=== PATIENT | female | born 2000 | race American Indian/Alaskan Native ===

== ENCOUNTER 2021-01-27 19:02 | Inpatient (IN) | payer MEDICAID ==
[2021-01-27] MEDS ORDERED: TERBUTALINE 1 MG/1 ML INJ SUB-Q PRN (19:39)
[2021-01-27] MEDS ORDERED: ePHEDrine SULFATE 50 MG/1 ML INJ IV PRN (19:39)
[2021-01-27] MEDS ORDERED: AMPICILLIN/NS 2 GM/100 ML 2 GM/100 ML BAG IV ONE ×2 (19:39→22:30)
[2021-01-27] MEDS ORDERED: MINERAL OIL 30 ML ORAL LIQD PO PRN (19:39)
[2021-01-27] MEDS ORDERED: LIDOCAINE (2%) 20 MG/1 ML VIAL 20 ML MDV INFILTRATI ONE (19:39)
[2021-01-27] MEDS ORDERED: ONDANSETRON 4 MG/2 ML INJ IV PRN (19:39)
[2021-01-27] MEDS ORDERED: LACTATED RINGERS 1,000 ML IV SCH (19:45)
[2021-01-27] MEDS ORDERED: OXYTOCIN DRIP 30 UNITS/500 ML BAG IV SCH (20:00)
[2021-01-27 20:47] LABS: Hematocrit 33.6 % (30.3-42.9); Hemoglobin 11.3 gm/dl (10.1-14.3); Mean Corpuscular HGB Conc 34 % (30-34); Mean Corpuscular Volume 83 fl (79-97); Platelet Count 129 K/mm3 (140-440); Red Blood Count 4.07 M/mm3 (3.65-5.03)
[2021-01-27] MEDS: fentaNYL 100 MCG/2 ML INJ IV PRN (21:36)
[2021-01-28] MEDS: fentaNYL 100 MCG/2 ML INJ IV PRN (01:03)
[2021-01-28] MEDS: AMPICILLIN/NS 1 GM/50 ML 1 GM/50 ML BAG IV SCH ×2 (01:30→05:37)
[2021-01-28] MEDS ORDERED: NALOXONE 2 MG/2 ML INJ IV PRN (01:54)
[2021-01-28] MEDS ORDERED: ePHEDrine SULFATE 50 MG/1 ML INJ IV PRN (01:54)
[2021-01-28] MEDS ORDERED: fentaNYL-BUPIV 2 MCG/ML-0.125% 200 MCG/100 ML BAG EPIDURAL SCH (02:00)
--- NOTE | 2021-01-28 02:13 | Anesthesia Consultation ---
Anesthesia Consult and Med Hx Date of service: 01/28/21 - Airway Anesthetic Teeth Evaluation: Good ROM Head & Neck: Adequate Mental/Hyoid Distance: Adequate Mallampati Class: Class II Intubation Access Assessment: Probably Good - Pulmonary Exam CTA: Yes - Cardiac Exam Cardiac Exam: RRR - Pre-Operative Health Status ASA Pre-Surgery Classification: ASA2 Proposed Anesthetic Plan: Epidural - Pulmonary Hx Asthma: No COPD: No Hx Pneumonia: No - Endocrine Hx End Stage Renal Disease: No - Other Systems Hx Alcohol Use: No
--- NOTE | 2021-01-28 02:15 | Progress Note ---
Labor Epidural - Labor Epidural Start Time: 02:00 Stop Time: 02:06 Performed by:: BECKY LESTER Procedure: Patient is requesting epidural for labor pain. H&P, and labs reviewed. Procedure explained, questions answered, consent obtained. Patient in sitting position with blood pressure cuff and pulse ox on and working. Timeout performed immediately before start of procedure. Sterile chlorahexadine 0.5% prep/drape. 3 mL 1% lidocaine skin wheal at L[3]-L[4]. 18-gauge [employer] epidural needle advanced to [id number] with saline at [7] cm. 27-gauge spinal needle advanced until clear, free-flowing CSF. Intrathecal dexmedetomidine [5] mcg administered and needle removed. Epidural catheter advanced to [12] cm, negative aspiration for blood and csf, negative test dose 3 ml 1.5% lidocaine with epinephrine. Sterile steri-strips and tegaderm applied, followed by tape reinforcement. Patient tolerated procedure well.
[2021-01-28] MEDS ORDERED: LIDOCAINE (2%) 20 MG/1 ML VIAL 20 ML MDV INFILTRATI ONE (05:34)
--- NOTE | 2021-01-28 06:21 | History and Physical Report ---
History of Present Illness Date of examination: 01/28/21 Date of admission: 01/27/21 19:24 Chief complaint: My water broke History of present illness: Patient is a 20-year-old 1 para 0 who presents with spontaneous rupture of membranes at 37-3/7 weeks. Her EDC is February 15, 2021. She is receiving care at [facility] however records are not available for review. Per the patient she has had an uncomplicated course. Past History Past Medical History: no pertinent history Past Surgical History: no surgical history Family/Genetic History: none Social history: single - Obstetrical History Expected Date of Delivery: 02/15/21 Actual Gestation: 37 Week(s) 3 Day(s) : 1 Medications and Allergies Allergies Allergy/AdvReac Type Severity Reaction Status Date / Time No Known Allergies Allergy Unverified 01/27/21 19:24 Active Meds: Active Medications Ephedrine Sulfate (Ephedrine Sulfate 50 Mg/1 Ml Inj) 10 mg IV Q2M PRN PRN Reason: Hypotension Fentanyl (Fentanyl 100 Mcg/2 Ml Inj) 100 mcg IV Q2H PRN PRN Reason: Pain,Severe (7-10) LABOR PAIN Last Admin: 01/28/21 01:03 Dose: 100 mcg Documented by: Lactated Ringer's (Lactated Ringers) 1,000 mls @ 125 mls/hr IV DIRECT LEN Last Admin: 01/27/21 21:33 Dose: 125 mls/hr Documented by: Oxytocin/Sodium Chloride (Pitocin/Ns 30 Unit/500ml) 30 units in 500 mls @ 40 mls/hr IV TITR LEN; Protocol Last Titration: 01/28/21 05:30 Dose: 8 mls/hr, 8 mls/hr Documented by: Ampicillin Sodium (Ampicillin/Ns 1 Gm/50 Ml) 1 gm in 50 mls @ 100 mls/hr IV Q4H LEN; Protocol Last Admin: 01/28/21 05:37 Dose: 100 mls/hr Documented by: Fentanyl/Bupivacaine/Sodium Chlor (Fentanyl-Bupiv 2 Mcg/Ml-0.125%) 200 mcg in 100 mls @ 12 mls/hr EPIDURAL TITR LEN; Protocol Last Admin: 01/28/21 02:21 Dose: 12 mls/hr Documented by: Mineral Oil (Mineral Oil 30 Ml Oral Liqd) 30 ml PO QHS PRN PRN Reason: Constipation Naloxone HCl (Naloxone 2 Mg/2 Ml Inj) 0.2 mg IV Q5M PRN PRN Reason: Respiratory sedation Ondansetron HCl (Ondansetron 4 Mg/2 Ml Inj) 4 mg IV Q8H PRN PRN Reason: Nausea And Vomiting Terbutaline Sulfate (Terbutaline 1 Mg/1 Ml Inj) 0.25 mg SUB-Q ONCE PRN PRN Reason: Hyperstimulation/Hypertonicity Review of Systems All systems: negative Genitourinary: leakage of fluid, contractions - Vital Signs Vital signs: Vital Signs Pulse Pulse Ox 102 H 100 01/27/21 19:05 01/27/21 19:05 Temp Pulse Resp BP Pulse Ox 98.4 F 98 H 18 94/63 98 01/28/21 05:30 01/28/21 06:15 01/28/21 05:30 01/28/21 06:11 01/28/21 06:15 - Physical Exam Breasts: Cardiovascular: Regular rate, Normal S1, Normal S2 Lungs: Positive: Clear to auscultation, Normal air movement Abdomen: Positive: normal appearance, soft, normal bowel sounds. Negative: distention, tenderness Genitourinary (Female): Positive: normal external genitalia, normal perenium Vulva: both: normal Vagina: Positive: normal moisture. Negative: discharge Cervix: Negative: lesion, discharge Uterus: Positive: normal size, normal contour Adnexa: both: normal Anus/Rectum: Positive: normal perianal skin, heme negative. Negative: rectal mass, hemorrhoids Extremities: Deep Tendon Reflex Grade: Normal +2 - Obstetrical Cervical Dilatation: 2 Cervical Effacement Percentage: 80 station: -2 Uterine Contraction Pattern: Regular Uterine Tone Measurement Phase: Contraction Uterine Contraction Intensity: Moderate Results Result Diagrams: 01/27/21 19:55 Abnormal lab results 01/27/21 Range/Units 19:55 Plt Count 129 L (140-440) K/mm3 All other labs normal. Assessment and Plan IUP at 37-3/7 weeks with spontaneous rupture membranes at term. She is also having some contractions. records were available for review, Therefore we will initiate GBS protocol. Patient to be augmented with Pitocin. Anticipate .
--- NOTE | 2021-01-28 10:34 | Procedure Note ---
OB Delivery Note - Delivery Date of Delivery: 01/28/21 Surgeon: CHRISTIN BOB Estimated blood loss: other (600 cc) - Section Preop diagnosis: arrest of descent Postop diagnosis: same section procedure: primary low transverse Disposition: PACU Complications: none Narrative: See op report - Infant A Infant Gender: Male (6 pounds 8 ounces 2950 g)
[2021-01-28] MEDS ORDERED: PHENYLEPHRINE/NS 1,000 MCG/10 ML SYRINGE (OR USE) IV ONE (13:30)
[2021-01-28] MEDS ORDERED: ONDANSETRON 4 MG/2 ML INJ ONE (13:30)
[2021-01-28] MEDS ORDERED: FAMOTIDINE 20 MG/2 ML INJ IV ONE (13:33)
[2021-01-28] MEDS ORDERED: BICITRA ORAL LIQD 30ML ONE (13:33)
[2021-01-28] MEDS ORDERED: METOCLOPRAMIDE 10 MG/2 ML INJ ONE (13:33)
[2021-01-28] MEDS ORDERED: KETOROLAC 30 MG/1 ML INJ ONE (13:34)
[2021-01-28] MEDS ORDERED: LIDOCAINE 2%/EPINEPHRINE 1:200,000 VIAL (20 ML) INFILTRATI ONE (13:34)
[2021-01-28] MEDS ORDERED: FAMOTIDINE 20 MG/2 ML INJ IV NR (13:35)
[2021-01-28] MEDS ORDERED: BICITRA ORAL LIQD 30ML PO NR (13:35)
[2021-01-28] MEDS ORDERED: METOCLOPRAMIDE 10 MG/2 ML INJ IV ONE (13:35)
[2021-01-28] MEDS ORDERED: dexAMETHasone 20 MG/5 ML VIAL ONE (13:36)
[2021-01-28] MEDS ORDERED: BUPIVACAINE/PF (0.5%) 5 MG/1 ML 30 ML VIAL INFILTRATI ONE (13:36)
--- NOTE | 2021-01-28 13:42 | Event Note ---
Date: 01/28/21 Pt progressd to 10cm and began pushing at 11am from -1 station. After 2 hours, vacuum was applied with no result to deliver the vertex. Will now proceed with urgent primary secondary to cephalopelvic disproportion, Pt agrees and signed consent.
[2021-01-28] MEDS ORDERED: LACTATED RINGERS 1,000 ML IV SCH (13:45)
[2021-01-28] MEDS ORDERED: ceFAZolin/Water 2 GM/20 ML 2 GM/20 ML SYRINGE IV NR (14:00)
[2021-01-28] MEDS ORDERED: ceFAZolin/STERILE WATER 2 GM/20 ML SYRINGE IV ONE (14:14)
[2021-01-28] MEDS ORDERED: WATER FOR IRRIG STERILE 1,500 ML BOTTLE IR ONE (14:15)
[2021-01-28] MEDS ORDERED: SODIUM CHLORIDE 0.9% IRR 1,500 ML BOTTLE IR ONE (14:15)
--- NOTE | 2021-01-28 15:33 | Operative Report ---
Operative Report Operative Report: Preoperative diagnosis: Intrauterine at 37-3/7 weeks 2. Arrest of descent 3. Persistent occiput posterior position 4. Failed vacuum extraction Postoperative diagnosis: Same Procedure: Primary low transverse section Surgeon: Dr. Tena Carmona EBL: 600 cc Urine output: 200 mL IV fluids: 1600 mL LR Findings: Viable male in the persistent occiput posterior position. Weight 6 lbs. 8 oz. 2950 g Apgars 8 and 9. Otherwise normal pelvic anatomy Specimens: None Complications: None Procedure: The patient was admitted to the OR with IV running and in place. She was properly identified as herself. She had an epidural placed in the room prior to entering into the OR. A Priest catheter had also been placed. She was placed in the dorsal supine position with a leftward tilt. She was then prepped and draped in the normal sterile fashion. An Allis test was used to confirm adequate anesthesia. Once confirmed, the incision was made with the scalpel and carried to the underlying fascia using the scalpel and the Bovie. The fascia was incised in the midline and incision was extended bilaterally using the curved Lund scissors. The fascia was then dissected from the underlying rectus muscles in a series of sharp and blunt dissection using the Lund scissors. Muscles were in the in the midline sharply using Metzenbaum scissors and the peritoneum was entered into bluntly using the surgeon's fingers. A bladder blade was then placed into the incision to protect the bladder. Following this the bladder flap was created. Hysterotomy incision was then made in the scalpel. Upon uterine entry, the amniotic sac was ruptured for clear fluid. The right arm of the was the presenting part. The was then delivered without difficulty. His mouth and nose were suctioned on the field. The cord was clamped and cut and he was handed to the waiting NICU personnel. The uterus was then exteriorized and cleared of all clots and debris. The hysterotomy incision was then closed in a running locked fashion using 0 Vicryl. The abdomen was then copiously irrigated with warm normal saline. Following this the uterus was replaced into the abdominal cavity. At this point the muscles were reapproximated in the midline using individual sutures of 0 Vicryl. Following this the fascia was closed in a running fashion using 0 Vicryl. Tissue was then copiously irrigated. Skin was closed in a running fashion using 3-0 Monocryl. The sponge lap needle and instrument counts were correct 2. The patient tolerated the procedure well. She was taken to recovery in stable condition.
--- NOTE | 2021-01-28 15:50 | Progress Note ---
Regional Anesthesia Block - Regional Anesthesia Block Start Time: 15:30 Stop Time: 15:35 Performed By:: BECKY LESTER Procedure: U/S guided bilateral tap block performed for post-operative pain requested by Dr. Carmona. H&P & labs reviewed. Procedure explained, questions answered, consent obtained. Patient in the supine position with ekg, blood pressure cuff and pulse ox on and working in PACU. Timeout performed immediately before start of procedure. Probe placed in the mid-axillary line and the external oblique, internal oblique, and transverse abdominus muscles identified. Skin was cleansed with chlorahexadine 0.5% and allowed to dry. A 4" 20 G Mandujano echogenic needle was advanced in plane until the tip was in the fascial plane between the internal oblique and the transverse abdominus. After negative aspiration 35 ml/side of [30 ml 0.5% Bupivacaine], [10 mg dexamethasone], and [40 ml sterile saline] was injected in 5 ml increments with negative aspiration in between. Patient tolerated procedure well. Mathew NUNN
[2021-01-28] MEDS ORDERED: OXYTOCIN DRIP 30 UNITS/500 ML BAG IV SCH (17:16)
[2021-01-28] MEDS ORDERED: LANOLIN/ZINC/DIMETHICONE (LANSINOH) 7 GM TP PRN (17:16)
[2021-01-28] MEDS ORDERED: WITCH HAZEL/ GLYCERIN PAD TP PRN (17:16)
[2021-01-28] MEDS ORDERED: NALOXONE 0.4 MG/1 ML INJ IV PRN (17:16)
[2021-01-28] MEDS ORDERED: D5W/LACTATED RINGERS 1,000 ML IV SCH (18:16)
[2021-01-28 18:20] LABS: Hematocrit 27.5 % (30.3-42.9); Hemoglobin 9.1 gm/dl (10.1-14.3); Mean Corpuscular HGB Conc 33 % (30-34); Mean Corpuscular Volume 82 fl (79-97); Platelet Count 116 K/mm3 (140-440); Red Blood Count 3.37 M/mm3 (3.65-5.03); Red Cell Distribution Width 13.8 % (13.2-15.2)
[2021-01-28] MEDS: MORPHINE 4 MG/1 ML INJ IV PRN (21:16)
[2021-01-28 21:44] LABS: Total Cells Counted 100
[2021-01-28 21:45] LABS: Anisocytosis 1+; Platelet Estimate Consistent w Auto
[2021-01-29] MEDS: oxyCODONE /ACETAMINOPHEN 5-325MG TAB PO PRN ×2 (02:30→09:49)
[2021-01-29] MEDS: IBUPROFEN 800 MG TAB PO PRN ×2 (06:51→15:43)
[2021-01-29] MEDS: PRENATAL VIT27-FE FUMARATE-FOLIC ACID VIT TAB PO SCH (09:46)
[2021-01-29] MEDS: FERROUS SULFATE 325 MG TAB PO SCH (09:46)
[2021-01-29 11:01] LABS: Hematocrit 22.6 % (30.3-42.9); Hemoglobin 7.5 gm/dl (10.1-14.3)
[2021-01-29 12:24] LABS: Bilirubin,Urine NEG (Negative); Blood,Urine LG (Negative); Color,Urine Red (Yellow); Mucus,Urine FEW /HPF; Urobilinogen,Urine < 2.0 mg/dL (<2.0)
[2021-01-29 12:25] LABS: Amphetamine Screen,Urine Negative; Benzodiazepines Screen,Urine Negative; Cannabinoid Screen,Urine Negative; Cocaine Screen,Urine Negative; Methadone Screen,Urine Negative; Opiate Screen,Urine Negative; RBC,Urine > 182.0 /HPF (0.0-6.0)
--- NOTE | 2021-01-29 12:29 | Post Anesthesia Evaluation ---
- Post Anesthesia Evaluation Patient Participated: Yes Airway Patent: Yes Stable Respiratory Function: Yes Nausea/Vomiting: No Temp > 96.8F: Yes Pain Manageable: Yes Adequeate Hydration: Yes Anesthesia Complications: No Block Receding Appropriately: Yes
--- NOTE | 2021-01-29 14:46 | Progress Note ---
Assessment and Plan POD 1 s/p Primary ltcs. Doing well. Pt has not had flatus as yet but has no nausea or vomiting noted. Encourage ambulation. Continue routine care. Subjective - Subjective Date of service: 01/29/21 Principal diagnosis: s/p Interval history: Patient is a 20-year-old 1 para 0 who presents with spontaneous rupture of membranes at 37-3/7 weeks. Her EDC is February 15, 2021. She is receiving care at [place] [facility] however records are not available for review. Per the patient she has had an uncomplicated course. Patient reports: appetite normal, voiding normally, pain well controlled, ambulating normally [place]: doing well Objective - Vital Signs Latest vital signs: Vital Signs Temp Pulse Resp BP BP Pulse Ox 01/29/21 10:49 16 01/29/21 09:49 16 01/29/21 08:52 98.0 F 82 18 113/59 96 01/29/21 07:35 16 01/29/21 07:25 16 01/29/21 05:10 98.1 F 90 18 112/71 97 01/29/21 01:17 98.3 F 93 H 20 112/64 95 01/28/21 20:56 97.7 F 103 H 18 117/78 96 01/28/21 17:35 98.8 F 85 17 120/80 99 01/28/21 16:45 99.1 F 82 18 108/70 98 01/28/21 16:30 80 17 111/68 98 01/28/21 16:15 84 15 109/67 98 01/28/21 16:00 69 17 105/71 98 01/28/21 15:45 73 15 113/66 98 01/28/21 15:35 77 14 114/58 98 01/28/21 15:30 76 16 116/56 98 01/28/21 15:25 98.9 F 82 18 111/66 98 Intake and Output 01/28/21 01/29/21 01/29/21 22:59 06:59 14:59 Intake Total 440 240 Output Total 1600 900 Balance -1160 -660 Intake: IV 200 Oral 240 240 Output: Urine 1600 900 Indwelling Catheter 600 900 Uretheral (Priest) 400 Other: Total, Intake Amount 240 240 Total, Output Amount 600 500 # Voids Indwelling Catheter 1 - Exam Breasts: Present: deferred Cardiovascular: Present: Regular rate, Normal S1, Normal S2 Lungs: Present: Clear to auscultation, Normal air movement Abdomen: Present: normal appearance, soft Uterus: Present: normal, firm Extremities: Present: normal Incision: Present: normal, dry, intact - Labs Labs: Abnormal lab results 01/28/21 01/29/21 01/29/21 Range/Units 18:01 09:46 11:55 WBC 14.5 H (4.5-11.0) K/mm3 RBC 3.37 L (3.65-5.03) M/mm3 Hgb 9.1 L 7.5 L (10.1-14.3) gm/dl Hct 27.5 L D 22.6 L (30.3-42.9) % MCH 27 L (28-32) pg Plt Count 116 L (140-440) K/mm3 Seg Neuts % (Manual) 95.0 H (40.0-70.0) % Lymphocytes % (Manual) 3.0 L (13.4-35.0) % Seg Neutrophils # Man 13.8 H (1.8-7.7) K/mm3 Lymphocytes # (Manual) 0.4 L (1.2-5.4) K/mm3 Urine WBC (Auto) 149.0 H (0.0-6.0) /HPF
[2021-01-29] MEDS: MORPHINE 4 MG/1 ML INJ IV PRN (21:43)
[2021-01-30] MEDS: oxyCODONE /ACETAMINOPHEN 5-325MG TAB PO PRN (02:56)
[2021-01-30] MEDS: SIMETHICONE 80 MG CHEW TAB PO PRN ×2 (02:57→08:14)
[2021-01-30] MEDS ORDERED: oxyCODONE /ACETAMINOPHEN 5-325MG TAB PO PRN (08:00)
--- NOTE | 2021-01-30 08:04 | Progress Note ---
Assessment and Plan A: POD#2 s/p primary at term Delayed return of bowel function Acute blood loss anemia P: Begin bowel regimen with Lactulose Encourage ambulation Continue to monitor clinical status Subjective - Subjective Date of service: 01/30/21 Principal diagnosis: s/p Interval history: Pt denies flatus and reports gas pain is causing her the most discomfort. She denies nausea or vomiting, and is burping. She is tolerating clear liquids. 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 Ambulated twice yesterday. Patient reports: appetite normal, voiding normally, pain poorly controlled, ambulating normally (minimally ), no dizzy ambulation, no flatus, no bowel movement [place]: doing well Objective - Vital Signs Latest vital signs: Vital Signs Temp Pulse Resp BP Pulse Ox 01/30/21 00:16 97.8 F 82 18 95/58 98 01/29/21 17:38 98.1 F 88 22 102/58 98 01/29/21 15:43 16 01/29/21 10:49 16 01/29/21 09:49 16 01/29/21 08:52 98.0 F 82 18 113/59 96 Intake and Output 01/29/21 01/30/21 01/30/21 22:59 06:59 14:59 Intake Total 1080 480 Balance 1080 480 Intake: Oral 360 Intake, Free Water 720 480 Other: Total, Intake Amount 360 # Voids Indwelling Catheter 3 Void 1 - Exam Breasts: Present: deferred Abdomen: Present: soft, distention (moderate ) Uterus: Present: fundal height at umbilicus Extremities: Present: normal Incision: Present: intact (with steristrips ) - Labs Labs: Abnormal lab results 01/29/21 01/29/21 Range/Units 09:46 11:55 Hgb 7.5 L (10.1-14.3) gm/dl Hct 22.6 L (30.3-42.9) % Urine WBC (Auto) 149.0 H (0.0-6.0) /HPF
[2021-01-30] MEDS: IBUPROFEN 800 MG TAB PO SCH ×3 (08:14→22:19)
[2021-01-30] MEDS: LACTULOSE 20 GM/30 ML ORAL LIQD PO SCH ×3 (09:01→21:59)
[2021-01-30] MEDS: FERROUS SULFATE 325 MG TAB PO SCH (09:35)
[2021-01-30] MEDS: PRENATAL VIT27-FE FUMARATE-FOLIC ACID VIT TAB PO SCH (09:35)
[2021-01-31] MEDS: LACTULOSE 20 GM/30 ML ORAL LIQD PO SCH (00:40)
[2021-01-31] MEDS: IBUPROFEN 800 MG TAB PO SCH ×3 (03:00→15:29)
--- NOTE | 2021-01-31 08:00 | Progress Note ---
Assessment and Plan A: POD3 s/p Primary C/S at term Acute Anemia due to blood loss P: Continue with routine care with discharge anticipated early this evening. Subjective - Subjective Date of service: 01/31/21 Principal diagnosis: s/p Interval history: POD3 s/p Primary C/S at term. Patient is feeling well and is up and ambulating. Reports passing flatus and having a large bowel movement yesterday. Lochia decreasing and pain is well controlled. Patient reports: appetite normal, voiding normally, pain well controlled, flatus, bowel movement, ambulating normally : doing well Objective - Vital Signs Latest vital signs: Vital Signs Temp Pulse Resp BP Pulse Ox 01/31/21 00:30 98.6 F 68 18 118/78 01/30/21 16:20 98 F 91 H 20 114/75 96 01/30/21 08:00 98.2 F 88 20 122/81 99 Intake and Output 01/30/21 01/30/21 01/31/21 15:59 23:59 07:59 Intake Total 400 500 Output Total 500 Balance 400 0 Intake: Oral 400 200 Intake, Free Water 300 Output: Urine 500 Void 500 Other: Total, Intake Amount 200 200 Total, Output Amount 500 # Voids Void 1 1 # Bowel Movements 1 - Exam Uterus: Present: normal, fundal height below umbilicus
--- NOTE | 2021-01-31 08:06 | Discharge Summary ---
Providers - Providers Date of Admission: 01/27/21 19:24 Date of discharge: 01/31/21 Attending physician: DUSTIN HUNTER Primary care physician: DUSTIN HUNTER Hospitalization Reason for admission: active labor, section (Arrest of Dilation) Delivery: Procedure: primary low transverse Other procedures: none complications: none Discharge diagnosis: IUP at term delivered [place] baby: male Hospital course: Patient presented to the hospital in active labor and went on to have a primary c/s due to arrest of dilation. course was mostly uncomplicated, patient had delayed return of bowel function which resolved on POD #2. Condition at discharge: Good Disposition: DC-01 TO HOME OR SELFCARE Plan - Discharge Medications Prescriptions: Ferrous Sulfate [Feosol 325 MG tab] 325 mg PO BID #60 tablet Ibuprofen [Motrin] 800 mg PO Q8HR PRN #30 tablet PRN Reason: Pain, Moderate (4-6) oxyCODONE /ACETAMINOPHEN [Percocet 5/325] 1 tab PO Q6HR PRN #40 tablet PRN Reason: Pain - Provider Discharge Summary Activity: routine, other (No sex, heavy lifting or strenuous excercise for 8 weeks) Diet: routine Instructions: routine Additional instructions: [] Smoking cessation referral if applicable(refer to patient education folder for contact #) [] Refer to [facility] Booklet Call your doctor immediately for: * Fever > 100.5 * Heavy vaginal bleeding ( >1 pad per hour) * Severe persistent headache * Shortness of breath * Reddened, hot, painful area to leg or breast * Drainage or odor from incision. * Keep incision clean and dry at all times and follow doctor's instructions regarding bathing/showering - Follow up plan Follow up: DUSTIN HUNTER MD [Primary Care Provider] - 14 Days
[2021-01-31] MEDS: FERROUS SULFATE 325 MG TAB PO SCH (09:32)
[2021-01-31] MEDS: PRENATAL VIT27-FE FUMARATE-FOLIC ACID VIT TAB PO SCH (09:32)
[2021-01-31 16:49] VITALS: BP 118/77
== END 2021-01-31 17:10 | disposition home or self-care (01) | DRG 765 ==
LOC: TRG 19:02 → APU 19:03 → TRG 19:23 → APU 19:24 → LD 20:36 → OB 01-28 17:14
PROVIDERS: ADMIT Obstetrics & Gynecology; ATTEND Obstetrics & Gynecology
PROC: 10D00Z1 Extraction of Products of Conception, Low, Open Approach (ICD-10-PCS; principal; 2021-01-28)
DX: O64.0XX0 Obstructed labor due to incomplete rotation of fetal head, not applicable or unspecified (principal); D62 Acute posthemorrhagic anemia; Z3A.37 37 weeks gestation of pregnancy; Z37.0 Single live birth; Z20.822 Contact with and (suspected) exposure to COVID-19; O62.0 Primary inadequate contractions; O90.81 Anemia of the puerperium
CPT/HCPCS: 36415; 59025; 80307; 81001; 85007; 85014; 85018; 85025; 85027; 86592; 86706; 86762; 86850; 86900; 86901; 87806; G0378; J0290; J0690; J1100; J1885; J2270; J2370; J2405; J2590; J3010; J7120; U0003